=== PATIENT | female | born 1995 | race Caucasian/White ===

== ENCOUNTER → 2018-03-30 | Emergency (ER) | payer OTHER ==
[~2018-03-30] VITALS: Ht 157.5 cm; Wt 63.5 kg
--- NOTE | 2018-03-30 00:15 | NUR ---
pt came in w/c/o abd' pain, vs stable, placed on er bed 13, seen and eval done by dr jackson, ua ordered.
[2018-03-30 01:21] LABS: APPEARANCE,URINE CLEAR (CLEAR); BILIRUBIN,URINE NEGATIVE (NEGATIVE); BLOOD, URINE 1+ Ery/uL (NEGATIVE); COLOR,URINE YELLOW (YELLOW); KETONES,URINE NEGATIVE (NEGATIVE); LEUKOCYTE ESTERASE ,URINE 1+ (NEGATIVE); NITRITE, URINE NEGATIVE (NEGATIVE); PH,URINE 6.5 (5.0-8.0); PROTEIN,URINE NEGATIVE (NEGATIVE); UGLUCOSE NEGATIVE (NEGATIVE); UROBILINOGEN,URINE 0.2 EU/dL (0.2)
[2018-03-30 01:28] LABS: BACTERIA,URINE Many /HPF (None Seen); SQUAMOUS EPITHELIAL CELL,UR Few /HPF (None Seen)
--- NOTE | 2018-03-30 01:29 | NUR ---
urine cx ordered.
--- NOTE | 2018-03-30 01:34 | NUR ---
us pelvic non ob ordered.
--- NOTE | 2018-03-30 04:29 | NUR ---
Patient discharged to home in stable condition. Written and verbal after care instructions given. Rx given, Patient verbalizes understanding of instruction.
[2018-03-30 04:30] VITALS: BP 115/70
== END | disposition home or self-care (01) ==
LOC: ER 00:14
DX: N39.0 Urinary tract infection, site not specified (principal); F41.9 Anxiety disorder, unspecified; F32.9 Major depressive disorder, single episode, unspecified; E03.9 Hypothyroidism, unspecified
CPT/HCPCS: 76856-TC; 81000-TC; 84703-TC; 87086-TC; 87186-TC; A4606; Z7610